=== PATIENT | female | born 1990 | race Caucasian/White ===

== ENCOUNTER 2016-07-11 13:42 | Emergency (ER) | payer BC, OTHER ==
[~2016-07-11] VITALS: Ht 160 cm; Wt 44.0 kg
[~2016-07-11 13:42] MED LIST: AMIT10TA6 PO; ATV/1 PO; HYDR-5688 PO; KETO30IN6 IM; MRN/25 PO; OLAN-111 PO; ONDA4TAB4 SL; PRLSR20 PO; PROM25TA9 PO; TOPI100T20 PO; VLT50 PO; VLT500 PO
[2016-07-11 13:46] VITALS: Ht 160 cm; Wt 44.0 kg
[2016-07-11] MEDS ORDERED: IBUP600T44 PO (14:11)
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
[2016-07-11] MEDS ORDERED: CYCL10TA6 PO (15:35)
[2016-07-11 15:46] VITALS: BP 133/83; PULSE 99; TEMP 36.9; O2SAT 98
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
== END 2016-07-11 15:48 | disposition home or self-care (01) ==
LOC: C.EDB 13:44 → C.EDD 15:48
DX: S16.1XXA Strain of muscle, fascia and tendon at neck level, initial encounter (principal); M25.512 Pain in left shoulder; M25.511 Pain in right shoulder; W19.XXXA Unspecified fall, initial encounter; Y93.23 Activity, snow (alpine) (downhill) skiing, snowboarding, sledding, tobogganing and snow tubing; J45.909 Unspecified asthma, uncomplicated; F17.200 Nicotine dependence, unspecified, uncomplicated; Z90.49 Acquired absence of other specified parts of digestive tract; Z83.3 Family history of diabetes mellitus

== ENCOUNTER → 2017-04-28 | Outpatient (CLI) | payer OTHER ==
[~2017-04-28] MED LIST changes: -AMIT10TA6 PO; -ATV/1 PO; -HYDR-5688 PO; +IBUP600T44 PO; -KETO30IN6 IM; -OLAN-111 PO; -ONDA4TAB4 SL; -PRLSR20 PO; -PROM25TA9 PO; -TOPI100T20 PO; -VLT50 PO; -VLT500 PO
[2017-04-28 18:44] LABS: BASO % 0.5 %; BASO ABS # 0.05 K/uL (0-0.2); COMPLETE YES; EOS % 0.3 %; HEMATOCRIT 38.6 % (37-47); IG% 0.2 %; LYMPH % 26.9 %; LYMPH ABS # 2.95 K/uL (1.2-3.4); MEAN CELL VOLUME 93.5 fL (80-100); MEAN CORPUSCULAR HGB CONC 34.2 g/dl (32-36); MEAN PLATELET VOLUME 9.1 fL (7.4-10.4); MONO % 6.6 %; NEUT % 65.5 %; PLATELET COUNT 406 K/uL (130-400); RED BLOOD COUNT 4.13 M/uL (4.2-5.4); WHITE BLOOD COUNT 10.96 K/uL (4.8-10.8)
[2017-04-28 19:02] LABS: ALT/SGPT 32 U/L (12-78); AST/SGOT 19 U/L (15-37); BLOOD UREA NITROGEN 12 mg/dl (7-18); BUN/CREATININE RATIO 16.3 (10-20); CALCIUM 8.9 mg/dl (8.5-10.1); CARBON DIOXIDE 28 mmol/L (21-32); CHLORIDE 104 mmol/L (98-107); CREATININE 0.75 mg/dl (0.60-1.20); GLUCOSE 74 mg/dl (70-99); POTASSIUM 3.2 mmol/L (3.5-5.1); SODIUM 136 mmol/L (136-145)
[2017-04-28 19:13] LABS: ALB/GLOB RATIO 1.4 (0.9-2); ALKALINE PHOSPHATASE 64 U/L (45-117)
[2017-04-28 20:50] LABS: LYME DISEASE AB IGG NEG (NEG); LYME DISEASE AB IGM NEG (NEG)
== END | disposition home or self-care (01) ==
LOC: C.LAB 17:19
DX: R50.9 Fever, unspecified (principal); R63.4 Abnormal weight loss

== ENCOUNTER 2018-10-03 22:20 | Observation (INO) ==
--- OUTSIDE RECORDS SUMMARY | 2018-10-03 22:23 | External Medical Summary | Continuity of Care Document ---
:1990 Author Name Chavo King Address Unavailable Unavailable , Care Team Providers Name Role Phone Erasto Fajardo [email or web address] [place] Lexy IZAGUIRRE JR Unavailable Unavailable Unavailable Unavailable Unavailable Assessments Assessed Problems:Non-smoker Problems Non-smoker (V49.89) (Z78.9) Gastroparesis (536.3) (K31.84) Abnormal weight loss (783.21) (R63.4) Esophageal reflux (530.81) (K21.9) Chronic tonsillitis (474.00) (J35.01) Hepatitis (573.3) (K75.9) Abdominal pain (789.00) (R10.9) Elevated transaminase level (790.4) (R74.0) Allergies and Adverse Reactions Domperidone POWD (Allergy) Medications KlonoPIN 1 MG Oral Tablet; TAKE 1 TABLET DAILY NEEDED. Refills: 0 Zofran 4 MG Oral Tablet; 1 tablet every eight hours as neede d Refills: 0 Reglan 5 MG Oral Tablet; TAKE 1 TABLET TWICE DAILY.as needed Refills: 0 Multi-Vitamin Oral Tablet; twice daily vitamins Refills: 0 Zoloft 100 MG Oral Tablet; TAKE 1 TABLET Bedtime Refills: 0 Aviane 0.1-20 MG-MCG Oral Tablet; TAKE 1 TABLET DAILY. Refills: 0 Vitamin D TABS Refills: 0 Zinc CAPS Refills: 0 Vitamin B Complex TABS Refills: 0 [place]-[address] CAPS Refills: 0 Vicodin TABS Refills: 0 Marinol CAPS Refills: 0 Procedures Procedures not documented Immunizations Immunizations not documented Plan of Treatment Planned Observations Planned Goals not documented Results No Known Results Results not documented Encounters Appointment; Danny Fajardo M.D. 31-Jan-2018 13:30 Encounter Diagnosis: Problem not documented
[2018-10-03] MEDS ORDERED: ACETAMINOPHEN 325 MG TAB PO PRN (22:45)
[2018-10-03] MEDS ORDERED: ONDANSETRON INJ 2 MG/ML 2 ML VIAL IV PRN (22:45)
[2018-10-03] MEDS: LACTATED RINGER'S 1,000 ML IV PRN ×2 (22:52→23:58)
--- NOTE | 2018-10-03 22:57 | History & Physical Report ---
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 Ctxs did not space out and got closer to every 2-3 min, lasting for 30 sec mild discomfort Pain is max 3/10 No LOF/VB +FM No dysuria/ diarrhea / constipation/ N&V/ fever/ chills/ vaginal d/c Her has been complicated by 1) low weight gain: BMI 16.7 2) Migraines 3) h/o G. 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
[2018-10-03 23:28] LABS: Appearance Urine Clear (Clear); Bilirubin Urine Negative (Negative); Blood Urine Negative (Negative); Color Urine Yellow; Glucose Urine UA Negative (Negative); Ketones Urine Negative (Negative); Leukocyte Esterase Urine Negative (Negative); Nitrite Urine Negative (Negative); Protein Urine Negative (Negative); Specific Gravity Urine 1.009 (1.000-1.030); Urobilinogen Urine Negative (Negative)
[2018-10-03] MEDS ORDERED: TERBUTALINE SULFATE 1 MG/ML VIAL SQ STA (23:59)
--- NOTE | 2018-10-04 00:07 | Obstetrical Progress Note ---
Date of Service October 04, 2018 Subjective Patient is reevaluated IVF bolus is finished Still feeling ctxs regularly every " couple of minutes" some painful some are not FFN negative U/A negative Cx pending [place]one showing more regular ctxs q 3-4 min, palpable Plan terbutaline sq once Celestone series for FLM Observe overnight Results & Data Vital Signs (Past 12 Hours) Vital Signs Temp Pulse Resp BP 10/03/18 23:08 36.8 C 88 18 117/69 10/03/18 22:50 88 117/69 10/03/18 22:32 96 H 131/80
[2018-10-04] MEDS ORDERED: BETAMETH SOD PHOS/ACETATE IA 6 MG/ML ONE (00:09)
[2018-10-04] MEDS ORDERED: BETAMETH SOD PHOS/ACETATE IA 6 MG/ML IM STA (00:13)
--- NOTE | 2018-10-04 01:49 | Obstetrical Progress Note ---
Date of Service October 04, 2018 Subjective Patient is reevaluated She feels much better She has not felt ctxs since Terbutaline was given She slept for 25 min and woke up with full blader VE: unchanged FHR reactive [place] no ctxs since terb sq Plan to observe, monitor, Procardia if ctxs restart Discussed possible side effects Keep overnight Understands and agrees with plan All questions were answered Results & Data Vital Signs (Past 12 Hours) Vital Signs Temp Pulse Resp BP Pulse Ox 10/04/18 01:39 109 H 99 10/04/18 01:34 102 H 97 10/04/18 01:29 102 H 98 10/04/18 01:24 103 H 97 10/04/18 01:19 98 H 97 10/04/18 01:14 101 H 97 10/04/18 01:09 104 H 97 10/04/18 01:04 104 H 97 10/04/18 00:59 107 H 98 10/04/18 00:54 108 H 98 10/04/18 00:49 105 H 98 10/04/18 00:44 108 H 98 10/04/18 00:32 111 H 98 10/04/18 00:27 114 H 98 10/04/18 00:22 111 H 99 10/04/18 00:17 104 H 98 10/04/18 00:14 36.8 C 106 H 18 111/61 10/04/18 00:12 101 H 99 10/04/18 00:07 98 H 98 10/03/18 23:08 36.8 C 88 18 117/69 10/03/18 22:50 88 117/69 10/03/18 22:32 96 H 131/80
[2018-10-04] MEDS: LACTATED RINGER'S 1,000 ML IV PRN (05:26)
[2018-10-04] MEDS: NIFEdipine 10 MG CAP PO PRN ×2 (05:34→06:27)
--- NOTE | 2018-10-04 05:38 | Obstetrical Progress Note ---
Date of Service October 04, 2018 Subjective Patient is reevaluated She has not had ctxs for a while and slept Has not received Procardia Now woke up with one and having another one while we speak It feels moderate by palpation Plan to start Procardia now and continue to monitor Results & Data Vital Signs (Past 12 Hours) Vital Signs Temp Pulse Resp BP Pulse Ox 10/04/18 03:28 36.8 C 92 H 18 93/51 L 10/04/18 03:25 97 H 97 10/04/18 03:20 92 H 97 10/04/18 03:15 94 H 98 10/04/18 03:10 92 H 97 10/04/18 03:05 92 H 97 10/04/18 03:00 93 H 97 10/04/18 02:55 92 H 97 10/04/18 02:50 95 H 98 10/04/18 02:45 96 H 97 10/04/18 02:40 96 H 97 10/04/18 02:35 98 H 97 10/04/18 02:30 99 H 98 10/04/18 02:25 101 H 98 10/04/18 02:20 94 H 97 10/04/18 02:15 97 H 98 10/04/18 02:10 102 H 98 10/04/18 02:05 104 H 97 10/04/18 02:00 107 H 98 10/04/18 01:55 102 H 98 10/04/18 01:50 99 H 98 10/04/18 01:45 102 H 98 10/04/18 01:39 109 H 99 10/04/18 01:34 102 H 97 10/04/18 01:29 102 H 98 10/04/18 01:24 103 H 97 10/04/18 01:19 98 H 97 10/04/18 01:14 101 H 97 10/04/18 01:09 104 H 97 10/04/18 01:04 104 H 97 10/04/18 00:59 107 H 98 10/04/18 00:54 108 H 98 10/04/18 00:49 105 H 98 10/04/18 00:44 108 H 98 10/04/18 00:32 111 H 98 10/04/18 00:27 114 H 98 10/04/18 00:22 111 H 99 10/04/18 00:17 104 H 98 10/04/18 00:14 36.8 C 106 H 18 111/61 10/04/18 00:12 101 H 99 10/04/18 00:07 98 H 98 10/03/18 23:08 36.8 C 88 18 117/69 10/03/18 22:50 88 117/69 10/03/18 22:32 96 H 131/80
[2018-10-04 07:12] VITALS: BP 106/57
[2018-10-04] MEDS ORDERED: NIFEdipine 10 MG CAP PO STA (07:15)
[2018-10-04 07:21] VITALS: TEMP 98.1
[2018-10-04 07:46] VITALS: PULSE 116; O2SAT 99
--- NOTE | 2018-10-04 10:23 | Obstetrical Progress Note ---
Date of Service October 04, 2018 Subjective contractions have spaced out with no pain with contractions now no bleeding or leakage of fluid tolerated diet cervix re-checked and finger-tip and thick FHT Cat 1 Will discharge home follow up tonight for second dose of steroids Results & Data Vital Signs (Past 12 Hours) Vital Signs Temp Pulse Resp BP Pulse Ox 10/04/18 07:44 116 H 99 10/04/18 07:39 107 H 98 10/04/18 07:34 109 H 98 10/04/18 07:29 114 H 99 10/04/18 07:24 115 H 100 10/04/18 07:19 111 H 99 10/04/18 07:16 36.7 C 18 10/04/18 07:14 118 H 98 10/04/18 07:11 112 H 106/57 L 10/04/18 07:09 111 H 99 10/04/18 07:04 115 H 99 10/04/18 06:56 116 H 98 10/04/18 06:51 116 H 98 10/04/18 06:46 110 H 98 10/04/18 06:41 98 H 97 10/04/18 06:36 95 H 98 10/04/18 06:31 96 H 98 10/04/18 06:28 90 102/59 L 10/04/18 06:26 98 H 97 10/04/18 06:21 92 H 98 10/04/18 06:16 97 H 98 10/04/18 06:11 94 H 98 10/04/18 06:06 97 H 99 10/04/18 06:01 93 H 99 10/04/18 05:56 93 H 98 10/04/18 05:51 94 H 97 10/04/18 05:46 90 97 10/04/18 05:41 86 98 10/04/18 05:36 93 H 98 10/04/18 03:28 36.8 C 92 H 18 93/51 L 10/04/18 03:25 97 H 97 10/04/18 03:20 92 H 97 10/04/18 03:15 94 H 98 10/04/18 03:10 92 H 97 10/04/18 03:05 92 H 97 10/04/18 03:00 93 H 97 10/04/18 02:55 92 H 97 10/04/18 02:50 95 H 98 10/04/18 02:45 96 H 97 10/04/18 02:40 96 H 97 10/04/18 02:35 98 H 97 10/04/18 02:30 99 H 98 10/04/18 02:25 101 H 98 10/04/18 02:20 94 H 97 10/04/18 02:15 97 H 98 10/04/18 02:10 102 H 98 10/04/18 02:05 104 H 97 10/04/18 02:00 107 H 98 10/04/18 01:55 102 H 98 10/04/18 01:50 99 H 98 10/04/18 01:45 102 H 98 10/04/18 01:39 109 H 99 10/04/18 01:34 102 H 97 10/04/18 01:29 102 H 98 10/04/18 01:24 103 H 97 10/04/18 01:19 98 H 97 10/04/18 01:14 101 H 97 10/04/18 01:09 104 H 97 10/04/18 01:04 104 H 97 10/04/18 00:59 107 H 98 10/04/18 00:54 108 H 98 10/04/18 00:49 105 H 98 10/04/18 00:44 108 H 98 10/04/18 00:32 111 H 98 10/04/18 00:27 114 H 98 10/04/18 00:22 111 H 99 10/04/18 00:17 104 H 98 10/04/18 00:14 36.8 C 106 H 18 111/61 10/04/18 00:12 101 H 99 10/04/18 00:07 98 H 98 10/03/18 23:08 36.8 C 88 18 117/69 10/03/18 22:50 88 117/69 10/03/18 22:32 96 H 131/80
--- NOTE | 2018-10-21 00:57 | Discharge Summary ---
REASON FOR ADMISSION: The patient was seen last night for labor at 25 weeks. She was given steroids. She had a category 1 strip. Her strip did not show any contractions. No bleeding or leakage of fluid. She was fingertip and thick on her examination. She was 25 weeks with labor diagnosis and discharged in a stable condition. Home going instructions were given. Condition on discharge is stable. Follow up for her steroid shot and follow up in the office.
== END 2018-10-04 10:35 | disposition home or self-care (01) ==
LOC: OPB 22:20 → 4S1 22:20